=== PATIENT | female | born 1980 ===

== ENCOUNTER 2021-10-20 06:00 | Inpatient (IN) | payer OTHER ==
[~2021-10-20] VITALS: Ht 160 cm; Wt 62.6 kg
[2021-10-21] MEDS ORDERED: NAPRELAN500 M1 PO (09:00)
[2021-10-21] MEDS ORDERED: Tylenol #3 PO (09:00)
== END 2021-10-21 11:14 | disposition home or self-care (01) | DRG 743 ==
LOC: CIR.AMB 06:00 → O/R 14:11 → OB/GYN 14:11
PROVIDERS: ADMIT Obstetrics & Gynecology; ATTEND Obstetrics & Gynecology
PROC: 0USG7ZZ Reposition Vagina, Via Natural or Artificial Opening (ICD-10-PCS; 2021-10-20)
PROC: 0TJB8ZZ Inspection of Bladder, Via Natural or Artificial Opening Endoscopic (ICD-10-PCS; 2021-10-20)
PROC: 0UT97ZZ Resection of Uterus, Via Natural or Artificial Opening (ICD-10-PCS; principal; 2021-10-20 15:15)
DX: D25.1 Intramural leiomyoma of uterus (principal); N81.11 Cystocele, midline; D50.0 Iron deficiency anemia secondary to blood loss (chronic); Z20.822 Contact with and (suspected) exposure to COVID-19; N81.5 Vaginal enterocele